=== PATIENT | male | born 1995 | race Two or more races ===

== ENCOUNTER 2020-06-01 19:32 | Emergency (ER) | payer OTHER ==
[~2020-06-01] VITALS: Ht 167.6 cm; Wt 79.0 kg
[2020-06-01 20:05] VITALS: BP 164/113
== END 2020-06-01 21:15 | disposition home or self-care (01) ==
LOC: ER 19:32
DX: R05 Cough (principal); Z03.818 Encounter for observation for suspected exposure to other biological agents ruled out
CPT/HCPCS: 99281; 99283